=== PATIENT | male | born 1950 | race Caucasian/White ===

== ENCOUNTER 2016-06-10 13:22 | Emergency (ER) | payer OTHER, MEDICARE ==
[~2016-06-10] VITALS: Ht 165.1 cm; Wt 83.9 kg
[2016-06-10 13:26] VITALS: BP 151/79
--- NOTE | 2016-06-10 13:52 | ED HAND/WRIST INJURY COMPLAINT ---
History of Present Illness General Chief Complaint: Laceration Procedure Stated Complaint: LAC TO FINGER Source: patient Exam Limitations: no limitations Vital Signs & Intake/Output Vital Signs & Intake/Output Vital Signs Date Time Temp Pulse Resp B/P B/P Pulse O2 O2 Flow FiO2 Mean Ox Delivery Rate 06/10 1326 98.1 76 18 151/79 96 Room Air ED Intake and Output 06/11 0000 05 1200 Intake Total Output Total Balance Patient 185 lb Weight Allergies Coded Allergies: NO KNOWN ALLERGIES (06/27/12) Triage Note: PT SENT TO ER BY [facility] FOR LAC TO L PINKY FINGER. UTD ON TETANUS Triage Nurses Notes Reviewed? yes Occurred: just prior to arrival Duration: hour(s): (1) Timing: no prior history Injury Environment: work Severity: moderate Severity Numbers: 7 Pain/Injury Location: Left: 5th finger. Context: laceration Method of Injury: laceration No Modifying Factors: none HPI: Patient is a 66-year-old male presenting to the emergency department from work with chief complaint of laceration to left pinky finger. Patient reports that he was slicing meat when he accidentally sliced his finger. Denies being on any blood thinners. Bleeding was controlled with pressure. Denies any numbness or tingling. Denies taking anything for pain prior to arrival. Denies any other injury. (CAMERON ORDOÑEZ) Past History Travel History Traveled to [place] past 21 day No Medical History Any Pertinent Medical History? 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 No (CAMERON ORDOÑEZ) Review of Systems Review of Systems Constitutional: Reports: no symptoms. Comments Review of systems: See HPI, All other systems negative. Constitutional, no chills fever or weight loss HEENT: No visual changes no sore throat no congestion Cardiovascular: No chest paiN Skin, no jaundice no rashes Respiratory: No dyspnea cough sputum GI: No nausea no vomiting Muscle skeletal: no back pain, no neck pain, Neurologic: No numbness Immunology: No splenectomy or history of AIDS (CAMERON ORDOÑEZ) Physical Exam Physical Exam General Appearance: well developed/nourished, no apparent distress, alert, awake , comfortable Hand Left: lacerations Hand Right: normal inspection, normal range of motion Comments: Well-developed well-nourished no apparent distress. HEENT: Atraumatic, extraocular motion intact Neck: Supple, no lymphadenopathy Back: Nontender Respiratory: No respiratory distress Extremities: No edema, full range of motion, full range of motion of all digits on the upper extremity bilaterally. Capillary refill is intact in upper extremities bilaterally. Radial pulses are 2+ bilaterally. Neuro: Alert and oriented x3, motor and sensory intact in upper extremities bilaterally. Skin: There is a 2 cm linear well approximated laceration at the distal tip of the left fifth finger. No nail involvement. No surrounding erythema or edema. No foreign bodies. Mildly tender to palpation in this area. Psych: Mood affect normal, normal memory normal judgment. (CAMERON ORDOÑEZ) Progress Differential Diagnosis: LACERATION,ABRASION, CONTUSION, SKIN AVULSION Plan of Care: Current Medications Sig/Bree Start time Last Medication Dose Stop Time Status Admin Lidocaine 20 ML ONCE ONE 06/10 1400 UNVr (Lidocaine 1%) 06/10 1401 Departure Departure Time of Disposition: 140 Disposition: HOME OR SELF CARE Condition: Stable Clinical Impression Primary Impression: Laceration Referrals: CHAN ALVAREZ,JERICA Chris (PCP/Family) Additional Instructions: Return in 7-10 days for suture removal. Keep clean and dry. Take over-the- counter Motrin or Tylenol instructed for pain. Return for any increased redness pain or concerns. 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 I have also reviewed all the pertinent lab results and diagnostic results. I agree with the findings and the plan of care as documented in the PA's/TANK CAR REPAIRER's documentation. [X] I have reviewed the ED Record and agree with the PA's/TANK CAR REPAIRER's documentation. [] Additions or exceptions (if any) to the PAs/TANK CAR REPAIRER's note and plan are summarized below: [] (KASSANDRA ALVAREZ,FABIANA) Procedures Laceration/Wound Repair Laceration/Wound Repair: Wound Location: upper extremity Wound's Depth, Shape: linear, subcutaneous Wound Length (cm): 2 Wound Explored: clean, no foreign body removed, irrigated extensively Irrigated w/ Saline (ccs): 500 Betadine Prep? Yes Anesthesia: 1% lidocaine Volume Anesthetic (ccs): 2 Wound Debrided: minimal Wound Repaired With: sutures Suture Size/Type: 5:0, nylon Number of Sutures: 3 Layer Closure? No Tetanus Status: up to date (ANNA PHILIP,CAMERON)
== END 2016-06-10 14:26 ==
LOC: ERH 13:22
DX: S61.217A Laceration without foreign body of left little finger without damage to nail, initial encounter (principal); W45.8XXA Other foreign body or object entering through skin, initial encounter; Y92.9 Unspecified place or not applicable; Y93.G1 Activity, food preparation and clean up